=== PATIENT | male | born 1940 | race Caucasian/White ===

== ENCOUNTER 2017-08-18 17:11 | Observation (INO) ==
[2017-08-18 17:45] LABS: Basophils % 0.8 %; Hematocrit 43.7 % (37.5-50.1); Hemoglobin 14.6 g/dL (12.9-16.9); Immature Granulocytes % 0.2 % (0-4); Lymphocytes % 25.2 %; Mean Corpuscular HGB Conc 33.4 g/dL (31.6-35.5); Mean Corpuscular Hemoglobin 29.5 pg (28.0-33.3); Mean Corpuscular Volume 88.3 fL (83.0-100.0); Mean Platelet Volume 10.9 fL (9.4-12.4); Monocytes % 9.2 %; Platelet Count 234 K/mcL (140-400); Red Blood Count 4.95 M/mcL (4.19-5.50); Red Cell Distribution Width 12.7 % (11.5-14.5); Segmented Neutrophils % 64.6 %
[2017-08-18 17:46] LABS: Basophils # 0.1 K/mcL (0.0-0.2); Lymphocytes # 2.3 K/mcL (0.6-4.6); Monocytes # 0.9 K/mcL (0.0-1.3)
--- NOTE | 2017-08-18 17:48 | Emergency Department Note ---
Disposition Clinical Impression: Atrial fibrillation with RVR Disposition: Admitted As Inpatient Condition: Good General Adult HPI - General Chief complaint: ED Shortness of Breath/Dyspnea Stated complaint: JEAN-PAUL Time Seen by Provider: 08/18/17 17:17 Source: patient Limitations: no limitations Nursing Notes Reviewed: Yes Vital Signs Reviewed: Yes - History of Present Illness Pain Scale: 4 - Related Data Home Medications Medication Instructions Recorded Confirmed Atorvastatin [Lipitor] 40 mg PO HS 08/18/17 08/18/17 Celecoxib [Celebrex] 200 mg PO DAILY 08/18/17 08/18/17 Diltiazem CD (24hr) [Cardizem CD] 120 mg PO DAILY 08/18/17 08/18/17 Metformin HCl [Glucophage] 1,000 mg PO BID 08/18/17 08/18/17 Tamsulosin [Flomax] 0.4 mg PO DAILY 08/18/17 Allergies Allergy/AdvReac Type Severity Reaction Status Date / Time No Known Allergies Allergy Verified 07/24/17 18:09 Past Medical History - Past Medical History Medical history: Reports: arthritis, atrial fibrillation, diabetes, hyperlipidemia Psychiatric history: Reports: no psych history - Social History Smoking Status: Current every day smoker Smokeless Tobacco Status: No Alcohol use: Reports: heavy, recent Drug use: Reports: none Physical Exam - General Limitations: no limitations General appearance: alert, in no apparent distress Course Vital Signs Temperature 97.4 F L 08/18/17 17:16 Pulse Rate 148 08/18/17 17:16 Respiratory Rate 16 08/18/17 17:16 Blood Pressure 155/91 08/18/17 17:16 O2 Sat by Pulse Oximetry 98 08/18/17 17:16 Temperature 97.4 F L 08/18/17 17:16 Pulse Rate 87 08/18/17 19:20 Respiratory Rate 16 08/18/17 19:20 Blood Pressure 118/77 08/18/17 19:20 O2 Sat by Pulse Oximetry 95 08/18/17 19:20 Oxygen Delivery Oxygen Delivery Room Air Medical Decision Making - MDM Narrative Medical decision making narrative: This documentation is done with the assistance of Dragon dictation. There may be inaccuracies in supervisor tree trimming or spelling and typographical errors. I examined this patient and my medical decision-making was reviewed with the Resident Physician. I agree with the documented findings, disposition and treatment plan as described except to the extent set forth below. Patient seen and evaluated by Dr. Blas and myself, and agree with his evaluation and management plan, suprascapular the patient that stay. Patient presents today with palpitations and dyspnea. He has A. fib with RVR here with rates of 140s 150s. Restroom on Cardizem check lab work and then reassessed. He is in agreement with this plan. He has been drinking alcohol today also. Chest X-Ray 08/18/17 17:21 IMPRESSION: No acute cardiopulmonary findings. D/ / Josephine Candelaria MD / Josephine Candelaria MD Interpreting Provider: Josephine Candelaria MD 1825 hrs.: Patient's chest x-ray looks good. He is on a Cardizem drip and doing better. Labs are back. Recommended admitting to the hospital, impression is A. fib with RVR. Patient submitted time in stable condition. Patient's critical care time excluding any separately billable procedures is 30 minutes. - Lab Data Result diagrams: 08/18/17 17:30 08/18/17 17:30 Lab Results 08/18/17 08/18/17 08/18/17 Range/Units 17:30 17:30 17:30 WBC 9.3 (4.3-11.1) K/mcL RBC 4.95 (4.19-5.50) M/mcL Hgb 14.6 (12.9-16.9) g/dL Hct 43.7 (37.5-50.1) % MCV 88.3 (83.0-100.0) fL MCH 29.5 (28.0-33.3) pg MCHC 33.4 (31.6-35.5) g/dL RDW 12.7 (11.5-14.5) % Plt Count 234 (140-400) K/mcL MPV 10.9 (9.4-12.4) fL Immature Gran % 0.2 (0-4) % Seg Neutrophils % 64.6 % Lymphocytes % 25.2 % Monocytes % 9.2 % Eosinophils % 0.0 % Basophils % 0.8 % Neutrophils # 6.0 (1.6-8.9) K/mcL Lymphocytes # 2.3 (0.6-4.6) K/mcL Monocytes # 0.9 (0.0-1.3) K/mcL Eosinophils # 0.0 (0.0-0.6) K/mcL Basophils # 0.1 (0.0-0.2) K/mcL PT 12.3 H (9.4-12.1) Seconds INR 1.1 APTT 30.0 (26.0-36.0) Seconds Sodium 134 L (136-145) mEq/L Potassium 3.6 (3.5-5.1) mEq/L Chloride 103 (98-107) mEq/L Carbon Dioxide 22 L (23-29) mEq/L BUN 14 (8-23) mg/dL Creatinine 1.21 (0.70-1.30) mg/dL Est GFR ( Amer) > 60 (> 60) Est GFR (Non-Af Amer) 58 L (> 60) BUN/Creatinine Ratio 12 (6-26) Glucose 115 H (70-105) mg/dL Calculated Osmolality 279 L (280-300) Calcium 10.0 (8.6-10.3) mg/dL Troponin I (< 0.04) ng/mL TSH 2.067 (0.340-5.600) mcIU/mL Ethyl Alcohol 26 H (0-10) mg/dL 08/18/17 Range/Units 17:30 WBC (4.3-11.1) K/mcL RBC (4.19-5.50) M/mcL Hgb (12.9-16.9) g/dL Hct (37.5-50.1) % MCV (83.0-100.0) fL MCH (28.0-33.3) pg MCHC (31.6-35.5) g/dL RDW (11.5-14.5) % Plt Count (140-400) K/mcL MPV (9.4-12.4) fL Immature Gran % (0-4) % Seg Neutrophils % % Lymphocytes % % Monocytes % % Eosinophils % % Basophils % % Neutrophils # (1.6-8.9) K/mcL Lymphocytes # (0.6-4.6) K/mcL Monocytes # (0.0-1.3) K/mcL Eosinophils # (0.0-0.6) K/mcL Basophils # (0.0-0.2) K/mcL PT (9.4-12.1) Seconds INR APTT (26.0-36.0) Seconds Sodium (136-145) mEq/L Potassium (3.5-5.1) mEq/L Chloride (98-107) mEq/L Carbon Dioxide (23-29) mEq/L BUN (8-23) mg/dL Creatinine (0.70-1.30) mg/dL Est GFR ( Amer) (> 60) Est GFR (Non-Af Amer) (> 60) BUN/Creatinine Ratio (6-26) Glucose (70-105) mg/dL Calculated Osmolality (280-300) Calcium (8.6-10.3) mg/dL Troponin I < 0.03 (< 0.04) ng/mL TSH (0.340-5.600) mcIU/mL Ethyl Alcohol (0-10) mg/dL
[2017-08-18 17:49] LABS: INR 1.1; Prothrombin Time 12.3 Seconds (9.4-12.1)
--- NOTE | 2017-08-18 17:51 | Emergency Department Note ---
Disposition Clinical Impression: Atrial fibrillation with RVR Disposition: Admitted As Inpatient Condition: Good Referrals: Josephine Allison CNP [Primary Care Provider] - Forms: ED Satisfaction Letter General Adult HPI - General Chief complaint: ED Shortness of Breath/Dyspnea Stated complaint: JEAN-PAUL Time Seen by Provider: 08/18/17 17:17 Source: patient Mode of arrival: private vehicle Limitations: no limitations Nursing Notes Reviewed: Yes Vital Signs Reviewed: Yes - History of Present Illness HPI Narrative: 77-year-old male history of prior arrhythmia reportedly on Xarelto but stopped due to GI bleed, diabetes who presents to the ER due to lightheadedness and shortness of breath. Patient states he started having symptoms earlier today. States he has felt palpitations in the past and has been seen here for similar symptoms. 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 Denies any chest pain. Has felt lightheaded but no syncopal episodes. No nausea vomiting or diarrhea. Denies any alcohol or drug use except for 2 beers earlier today. No other complaints. Pt Subjective Complaint: Shortness of breath, lightheaded Onset (ago): hour(s) Pain Scale: 4 Consistency: constant Improves with: nothing Worsens with: nothing Associated symptoms: Reports: shortness of breath. Denies: chest pain, nausea/ vomiting Treatments Prior to Arrival: none - Related Data Allergies Allergy/AdvReac Type Severity Reaction Status Date / Time No Known Allergies Allergy Verified 07/24/17 18:09 All systems ED: reviewed and negative except as stated. Constitutional: Denies: fever Cardiovascular: Reports: palpitations. Denies: chest pain Respiratory: Reports: dyspnea. Denies: cough Gastrointestinal: Denies: abdominal pain, nausea, vomiting, diarrhea Past Medical History - Past Medical History Attestation: Yes The following information was validated with the patient. Source: patient Medical history: Reports: arthritis, atrial fibrillation, diabetes, hyperlipidemia Psychiatric history: Reports: no psych history - Social History Smoking Status: Current every day smoker Smokeless Tobacco Status: No Alcohol use: Reports: heavy, recent Drug use: Reports: none Physical Exam - General Limitations: no limitations General appearance: alert, in no apparent distress - Head Head exam: atraumatic, normocephalic - Eye Eye exam: Present: normal appearance - ENT ENT exam: normal exam - Neck Neck exam: Present: normal inspection - Chest Chest inspection: Present: normal inspection, symmetric chest wall rise - Respiratory Respiratory exam: Present: normal lung sounds bilaterally - Cardiovascular Cardiovascular exam: Present: tachycardia, irregular rhythm, normal heart sounds - Abdominal Exam Abdominal exam: Present: soft, Non-Tender. Absent: tenderness - Extremities Exam Extremities exam: Present: normal inspection, full ROM - Expanded Upper Extremity Exam Shoulder exam: Present: normal inspection, full ROM Arm exam: Present: normal inspection, full ROM Elbow exam: Present: normal inspection, full ROM Forearm/Wrist exam: Present: normal inspection, full ROM Hand exam: Present: normal inspection, full ROM - Expanded Lower Extremity Exam Hip/Pelvis exam: Present: normal inspection, full ROM Upper leg exam: Present: normal inspection, full ROM Knee exam: Present: normal inspection, full ROM Lower leg exam: Present: normal inspection, full ROM Ankle exam: Present: normal inspection, full ROM Foot/toe exam: Present: normal inspection, full ROM - Neurological Exam Neurological exam: Present: alert, other (GCS 15. Nonfocal neurologic exam. Moves all extremities equally.) - Skin Skin exam: Present: warm, dry, intact Course Course Narrative: Patient seen and examined. Vital signs reviewed. We will obtain EKG, chest x- ray as well as labs and troponin. Patient is currently tachycardic and hemodynamically stable. We will start Cardizem - Reevaluation(s) Reevaluation #1: Discussed results of imaging and labs with the patient. Agreeable with being admitted. Reevaluation #2: Patient now 90-100 on 10 mg Cardizem drip. Vital Signs Temperature 97.4 F L 08/18/17 17:16 Pulse Rate 148 08/18/17 17:16 Respiratory Rate 16 08/18/17 17:16 Blood Pressure 155/91 08/18/17 17:16 O2 Sat by Pulse Oximetry 98 08/18/17 17:16 Temperature 97.4 F L 08/18/17 17:16 Pulse Rate 115 08/18/17 17:59 Respiratory Rate 16 08/18/17 17:59 Blood Pressure 124/68 08/18/17 17:59 O2 Sat by Pulse Oximetry 97 08/18/17 17:59 Oxygen Delivery Oxygen Delivery Room Air Medical Decision Making - [facility] Narrative Medical decision making narrative: 77-year-old male with history of atrial fibrillation presents to the ER due to lightheadedness. Noted to be in A. fib RVR with a rate up to 150 here. Stable blood pressure. Mentating appropriately. EKG shows A. fib RVR. Patient given Cardizem bolus and drip. He is currently rate controlled. Currently not anticoagulated given history of GI bleed. Patient except to the hospitalist service for A. fib RVR. - Lab Data Lab results reviewed: Yes I reviewed the patient's lab results. Result diagrams: 08/18/17 17:30 08/18/17 17:30 Lab Results 08/18/17 08/18/17 08/18/17 Range/Units 17:30 17:30 17:30 WBC 9.3 (4.3-11.1) K/mcL RBC 4.95 (4.19-5.50) M/mcL Hgb 14.6 (12.9-16.9) g/dL Hct 43.7 (37.5-50.1) % MCV 88.3 (83.0-100.0) fL MCH 29.5 (28.0-33.3) pg MCHC 33.4 (31.6-35.5) g/dL RDW 12.7 (11.5-14.5) % Plt Count 234 (140-400) K/mcL MPV 10.9 (9.4-12.4) fL Immature Gran % 0.2 (0-4) % Seg Neutrophils % 64.6 % Lymphocytes % 25.2 % Monocytes % 9.2 % Eosinophils % 0.0 % Basophils % 0.8 % Neutrophils # 6.0 (1.6-8.9) K/mcL Lymphocytes # 2.3 (0.6-4.6) K/mcL Monocytes # 0.9 (0.0-1.3) K/mcL Eosinophils # 0.0 (0.0-0.6) K/mcL Basophils # 0.1 (0.0-0.2) K/mcL PT 12.3 H (9.4-12.1) Seconds INR 1.1 APTT 30.0 (26.0-36.0) Seconds Sodium 134 L (136-145) mEq/L Potassium 3.6 (3.5-5.1) mEq/L Chloride 103 (98-107) mEq/L Carbon Dioxide 22 L (23-29) mEq/L BUN 14 (8-23) mg/dL Creatinine 1.21 (0.70-1.30) mg/dL Est GFR ( Amer) > 60 (> 60) Est GFR (Non-Af Amer) 58 L (> 60) BUN/Creatinine Ratio 12 (6-26) Glucose 115 H (70-105) mg/dL Calculated Osmolality 279 L (280-300) Calcium 10.0 (8.6-10.3) mg/dL Troponin I (< 0.04) ng/mL TSH 2.067 (0.340-5.600) mcIU/mL Ethyl Alcohol 26 H (0-10) mg/dL 08/18/17 Range/Units 17:30 WBC (4.3-11.1) K/mcL RBC (4.19-5.50) M/mcL Hgb (12.9-16.9) g/dL Hct (37.5-50.1) % MCV (83.0-100.0) fL MCH (28.0-33.3) pg MCHC (31.6-35.5) g/dL RDW (11.5-14.5) % Plt Count (140-400) K/mcL MPV (9.4-12.4) fL Immature Gran % (0-4) % Seg Neutrophils % % Lymphocytes % % Monocytes % % Eosinophils % % Basophils % % Neutrophils # (1.6-8.9) K/mcL Lymphocytes # (0.6-4.6) K/mcL Monocytes # (0.0-1.3) K/mcL Eosinophils # (0.0-0.6) K/mcL Basophils # (0.0-0.2) K/mcL PT (9.4-12.1) Seconds INR APTT (26.0-36.0) Seconds Sodium (136-145) mEq/L Potassium (3.5-5.1) mEq/L Chloride (98-107) mEq/L Carbon Dioxide (23-29) mEq/L BUN (8-23) mg/dL Creatinine (0.70-1.30) mg/dL Est GFR ( Amer) (> 60) Est GFR (Non-Af Amer) (> 60) BUN/Creatinine Ratio (6-26) Glucose (70-105) mg/dL Calculated Osmolality (280-300) Calcium (8.6-10.3) mg/dL Troponin I < 0.03 (< 0.04) ng/mL TSH (0.340-5.600) mcIU/mL Ethyl Alcohol (0-10) mg/dL - Radiology Data Radiology results reviewed: Yes I reviewed the patient's radiology results. Chest X-Ray 08/18/17 17:21 IMPRESSION: No acute cardiopulmonary findings. D/ / Josephine Candelaria MD / Josephine Candelaria MD Interpreting Provider: Josephine Candelaria MD - EKG Data EKG #1 EKG attestation: Yes I reviewed and interpreted this EKG. EKG results narrative: EKG demonstrates atrial fibrillation with rapid ventricular response with a rate of 121. Normal axis. Normal intervals. Normal R-wave progression. No gross ST elevations or depressions. No acute ischemic findings. No significant changes from previous EKG dated 07/24/17. S.B.Anahi - Quinten Situation: Demographics, MOA Background: Presenting Complaint, Relevant PMH, Meds, & Allergies Assessment: Course and respsone to treatment, Patient/Family Expectation, Pertinant Lab Results Recommendation: Barrier(s) to disposition, Recommendation based on pending studies, treatments, or consults SShellie Report Given to: Dr. Judith Mensah Time: 19:04
[2017-08-18 17:57] LABS: BUN/Creatinine Ratio 12 (6-26); Blood Urea Nitrogen 14 mg/dL (8-23); Carbon Dioxide 22 mEq/L (23-29); Chloride 103 mEq/L (98-107); Glucose 115 mg/dL (70-105); Osmolality,Calculated 279 (280-300); Potassium 3.6 mEq/L (3.5-5.1); Sodium 134 mEq/L (136-145); eGFR For African Americans > 60 (> 60); eGFR For Non-African Americans 58 (> 60)
[2017-08-18 18:05] LABS: Ethanol 26 mg/dL (0-10)
[2017-08-18 18:15] LABS: Thyroid Stimulating Hormone 2.067 mcIU/mL (0.340-5.600)
[2017-08-18] MEDS ORDERED: Ondansetron 4 MG/2 ML VIAL IVP PRN (20:44)
[2017-08-18] MEDS ORDERED: Naloxone 0.4 MG/ML INJ IVP PRN (20:44)
[2017-08-18] MEDS ORDERED: Dextrose Gel 15 GM/37.5 ML TUBE PO PRN ×2 (20:46)
[2017-08-18] MEDS ORDERED: D5% in Water 1,000 ML IVC PRN (20:46)
[2017-08-18] MEDS ORDERED: *HR* Dextrose 50 % in Water (Syg) 50 ML SYRINGE IVP PRN (20:46)
[2017-08-18] MEDS ORDERED: Insulin LISPRO 300 UNITS/3 ML VIAL SQ SCH (21:00)
[2017-08-18] MEDS ORDERED: Diltiazem CD (24hr) 240 MG CAPSULE PO SCH (22:00)
--- NOTE | 2017-08-18 22:05 | Internal Med History&Physical ---
Date of Encounter: 08/18/17 Time of Encounter: 21:45 Assessment and Plan (1) Atrial fibrillation with RVR Current visit: Yes Status: Acute History of Afib Noted to be in Afib with RVR and symptomatic resolution of presenting symptoms once the rate was controlled titrate off cardizem gtt to maintain HR<100 Pt reported to be on cardizem 120mg PO qd at home, will increase the dose to cardizem 240mg PO qd Reports of taking Aspirin daily, will continue continue tele monitoring f/u 2D echo consider cardiology evaluation if rate not controlled with adjusted in cardizem dosing Pt does not have a telephone clerk as his primary telephone clerk moved, will need a telephone clerk referral upon discharge (2) Diabetes mellitus Current visit: Yes Status: Chronic Hold oral antihyperglycemic agents at this time continue sliding scale insulin algorithm monitor FS and BG ADA diet Qualifiers: Diabetes mellitus type: type 2 Diabetes mellitus complication status: with unspecified complications Diabetes mellitus intermediate accountant insulin use: without intermediate accountant use Qualified Code(s): E11.8 - Type 2 diabetes mellitus with unspecified complications (3) Hyperlipidemia Current visit: Yes Status: Chronic continue home dose of Lipitor Qualifiers: Hyperlipidemia type: unspecified Qualified Code(s): E78.5 - Hyperlipidemia , unspecified (4) DVT prophylaxis Current visit: Yes Status: Acute Heparin SQ Internal Medicine - H&P: HPI Chief complaint: palpitations, lightheadedness Admitted From: Home Plans for Post Hospital Care: Home History of present illness: Mr. Silva is a 77 year old male with PMH of Afib, DM, HLD who presented to the ER for evaluation of palpitations and lightheadness x 1 day. Pt states he had chest discomfort with palpitations since yesterday and kept feeling that he was going to faint, which is what prompted his visit to the ER. Upon arrival, he was noted to be in Afib with RVR with HR in 150s. He was started on cardizem gtt with improvement of his rate and resolution of his presenting symptoms. Reports of taking Caridzem LA 120mg once a day and not on anticoagulation due to history of GI bleed from Xarelto. Currently resting in bed and denies any sob , chest pain, abd pain, n/v, fever, or chills. Past Med Surg Social Fam HX - Past Medical History Medical history: arthritis, atrial fibrillation, diabetes, hyperlipidemia Psychiatric history: no psych history - Social History Smoking Status: Current every day smoker Smokeless Tobacco Status: No Alcohol use: heavy, recent Drug use: none Internal Medicine - H&P: Meds Atorvastatin [Lipitor] 40 mg PO HS 08/18/17 [History] Celecoxib [Celebrex] 200 mg PO DAILY 08/18/17 [History] Diltiazem CD (24hr) [Cardizem CD] 120 mg PO DAILY 08/18/17 [History] Metformin HCl [Glucophage] 1,000 mg PO BID 08/18/17 [History] Tamsulosin [Flomax] 0.4 mg PO DAILY 08/18/17 [History] 3 Allergy/AdvReac Type Severity Reaction Status Date / Time No Known Allergies Allergy Verified 07/24/17 18:09 All Systems PM: A 10-system review of systems was performed and is negative for pertinent findings except as documented above in the HPI. - EENT Eyes: as per HPI - Constitutional Vitals: Temp Pulse Resp BP Pulse Ox 97.8 F 82 16 129/75 97 08/18/17 20:42 08/18/17 20:42 08/18/17 20:42 08/18/17 20:42 08/18/17 20:42 General appearance: Present: cooperative, A&O X 3, pleasant, no acute distress, answers questions appropriately - Head Head exam: Present: atraumatic, normocephalic - Eye Eye exam: Present: conjuntiva pink, sclera anicteric - Respiratory Respiratory exam: Present: CTAB. Absent: respiratory distress, wheezes - Cardiovascular Cardiovascular exam: Present: irregular rhythm, +S1, +S2. Absent: diastolic murmur, systolic murmur - GI/Abdominal GI/Abdominal exam: Present: normal bowel sounds, soft, no peritoneal signs. Absent: distended, tenderness - Extremities Exam Extremities exam: Present: warm, radial pulses palpable and symmetrical. Absent : calf tenderness, cyanotic, pedal edema - Neurological Exam Neurological exam: Present: alert, oriented X3 - Psychiatric Psychiatric exam: Present: normal affect, normal mood Internal Med - H&P Results - Labs CBC & Chem 7: 08/18/17 17:30 08/18/17 17:30
[2017-08-19 05:23] LABS: Basophils # 0.1 K/mcL (0.0-0.2); Basophils % 0.7 %; Hematocrit 39.2 % (37.5-50.1); Immature Granulocytes % 0.4 % (0-4); Lymphocytes # 1.5 K/mcL (0.6-4.6); Lymphocytes % 22.4 %; Mean Corpuscular HGB Conc 32.9 g/dL (31.6-35.5); Mean Corpuscular Hemoglobin 29.3 pg (28.0-33.3); Mean Corpuscular Volume 88.9 fL (83.0-100.0); Mean Platelet Volume 11.5 fL (9.4-12.4); Monocytes # 0.9 K/mcL (0.0-1.3); Monocytes % 13.1 %; Neutrophils # 4.4 K/mcL (1.6-8.9); Platelet Count 216 K/mcL (140-400); Red Blood Count 4.41 M/mcL (4.19-5.50); Red Cell Distribution Width 12.6 % (11.5-14.5); Segmented Neutrophils % 63.4 %
[2017-08-19 05:27] LABS: Hemoglobin 12.9 g/dL (12.9-16.9)
[2017-08-19 05:30] LABS: BUN/Creatinine Ratio 17 (6-26); Blood Urea Nitrogen 18 mg/dL (8-23); Calcium 9.5 mg/dL (8.6-10.3); Carbon Dioxide 24 mEq/L (23-29); Chloride 108 mEq/L (98-107); Glucose 125 mg/dL (70-105); Magnesium 1.8 mg/dL (1.6-2.6); Osmolality,Calculated 297 (280-300); Phosphorous 2.9 mg/dL (2.7-4.5); Potassium 5.2 mEq/L (3.5-5.1); Sodium 142 mEq/L (136-145); eGFR For African Americans > 60 (> 60); eGFR For Non-African Americans > 60 (> 60)
[2017-08-19] MEDS ORDERED: *HR* Heparin 5,000 UNIT/ML VIAL SQ SCH (06:00)
[2017-08-19] MEDS ORDERED: Insulin LISPRO 300 UNITS/3 ML VIAL SQ SCH (07:30)
[2017-08-19 08:19] VITALS: BP 131/68
[2017-08-19] MEDS ORDERED: Aspirin 81 MG TAB.CHEW PO SCH (09:00)
[2017-08-19] MEDS ORDERED: Celecoxib 200 MG CAPSULE PO SCH (09:00)
--- NOTE | 2017-08-19 10:06 | Discharge Summary ---
<Bryan Nino - Last Filed: 08/19/17 14:42> Date of Encounter: 08/19/17 Time of Encounter: 10:04 - Discharge Diagnosis (1) Atrial fibrillation with RVR Priority: Primary Status: Acute (2) Diabetes mellitus Priority: Secondary Status: Chronic Qualifiers: Diabetes mellitus type: type 2 Diabetes mellitus complication status: with unspecified complications Diabetes mellitus prison insulin use: without supervisor long goods use Qualified Code(s): E11.8 - Type 2 diabetes mellitus with unspecified complications (3) Hyperlipidemia Priority: Secondary Status: Chronic Qualifiers: Hyperlipidemia type: unspecified Qualified Code(s): E78.5 - Hyperlipidemia , unspecified (4) DVT prophylaxis Priority: Secondary Status: Acute - Discharge Medications Prescriptions: Diltiazem CD (24hr) [Cardizem CD] 240 mg PO HS #30 cap Home Medications: Atorvastatin [Lipitor] 40 mg PO HS 08/18/17 [History] Celecoxib [Celebrex] 200 mg PO DAILY 08/18/17 [History] Metformin HCl [Glucophage] 1,000 mg PO BID 08/18/17 [History] Tamsulosin [Flomax] 0.4 mg PO DAILY 08/18/17 [History] Aspirin 81 mg PO DAILY 08/19/17 [History] Diltiazem CD (24hr) [Cardizem CD] 240 mg PO HS #30 cap 08/19/17 [Rx] Allergies/Adverse Reactions: 3 Allergy/AdvReac Type Severity Reaction Status Date / Time No Known Allergies Allergy Verified 07/24/17 18:09 Procedures/tests Complete & Pending: Procedures Performed prior 72 hours Category Date Time Status EV echocardiogram Stat Y 08/19/17 22:17 Completed Date of admission: 08/18/17 19:59 Primary care physician: Josephine Allison CNP Discharging clinician: Bryan Nino Anticipated date of discharge: 08/19/17 - Patient Status Disposition: Home, Self-Care Condition: Good Functional capacity at discharge: independent ambulation Overall status at discharge: patient is back to baseline - Discharge Instructions Instructions: Diltiazem (By mouth), Atrial Fibrillation (DC) Follow Up With: Josephine Allison CNP [Primary Care Provider] - Additional Instructions: Please follow up with your primary care provider within a week of discharge and take your medication as prescribed. Please note the increase in your cardizem dose. - Diet and Activity Activity: increase activity as tolerated, resume usual activities as tolerated Diet: advance to your usual diet Hospital course: Mr. Silva is a 77 year old male with past medical history of paroxysmal atrial fibrillation in the emergency department with a chief complaint of weakness, palpitations 1 day. He stated that his expenses in the past and can tell he goes into atrial fibrillation. In the emergency department heart rate was noted to pain in the 150s. He was started on Cardizem drip with improvement of great resolution of his symptoms. He is not on anticoagulation due to history of GI bleed on Xarelto. Labs were significant for an elevated alcohol of 26. His medical Hospital for further evaluation and management of atrial fibrillation with rapid ventricular response. During course of hospital stay, patient gradually improved. His symptoms did not return and his heart rate was well-controlled on Cardizem drip. He was transitioned to oral Cardizem and increased dose of 240 mg by mouth daily at bedtime. On day of discharge, patient had no complaints and vital signs were stable. Lab results unremarkable. Echocardiogram was performed showing ejection fraction of 60% with mild left ventricular diastolic dysfunction. No other abnormalities. He will be discharged home in stable condition and instructed to follow up with his primary care physician within 7-10 days. He was instructed to follow up in the emergency department if his symptoms should return. All questions were answered. - Time Spent with Patient Total time spent providing and/or coordinating discharge services: - Constitutional Vitals: Temp Pulse Resp BP Pulse Ox 97.8 F 78 18 131/68 93 08/19/17 08:12 08/19/17 08:12 08/19/17 08:12 08/19/17 08:12 08/19/17 08:12 General appearance: Present: cooperative, A&O X 3, pleasant, no acute distress, answers questions appropriately Exam: Gen.: Vitals noted. No acute distress. AAOx3 HEENT: PERRL/EOMI, oropharynx clear, Normocephalic, atraumatic Cardiac: RRR, no murmur, +S1/S2 Pulmonary: CTA bilaterally, no wheezes, rales or rhonchi, equal chest expansion Abdomen: soft, nontender, BS noted, no guarding MSK: ROM intact, no joint swelling noted Extremities: no BLE edema, nontender calf, no cyanosis or clubbing Neuro: A&Ox3, moves all extremities, no focal deficits Psych: Appropriate mood and behavior <Sami Cox Junior - Last Filed: 08/19/17 19:17> Date of Encounter: 08/19/17 - Discharge Diagnosis (1) Atrial fibrillation Priority: Primary Status: Acute Qualifiers: Atrial fibrillation type: paroxysmal Qualified Code(s): I48.0 - Paroxysmal atrial fibrillation (2) Diabetes mellitus Status: Chronic Qualifiers: Diabetes mellitus type: type 2 Diabetes mellitus complication status: with unspecified complications Diabetes mellitus prison insulin use: without prison use Qualified Code(s): E11.8 - Type 2 diabetes mellitus with unspecified complications (3) Hyperlipidemia Status: Chronic Qualifiers: Hyperlipidemia type: mixed hyperlipidemia Qualified Code(s): E78.2 - Mixed hyperlipidemia (4) Tobacco abuse Priority: Secondary Status: Chronic (5) Alcohol abuse Priority: Secondary Status: Chronic Procedures/tests Complete & Pending: Procedures Performed prior 72 hours Category Date Time Status EV echocardiogram Stat Y 08/19/17 22:17 Completed Date of admission: 08/18/17 19:59 Primary care physician: Josephine Allison [facility] Hospital course: Mr. Silva is a 77 year old male - Time Spent with Patient Total time spent providing and/or coordinating discharge services: - Constitutional Vitals: Temp Pulse Resp BP Pulse Ox 97.8 F 78 18 131/68 93 08/19/17 08:12 08/19/17 08:12 08/19/17 08:12 08/19/17 08:12 08/19/17 08:12 - Attending Attestation I examined this patient and my medical decision-making was reviewed with the Resident Physician on 08/19/17. I agree with the documented findings, disposition and treatment plan as described except to the extent set forth below. Mr Silva has been in observation for parox a fib with rapid rate. He is now in NSR and feels at baseline. He is afebrile with stable vitals and ready for discharge home. Exam alert. comfortable Mucus membranes dry Heart reg No wheeze Abd soft I/P 1. Parox a fib D/C today
--- NOTE | 2017-08-19 11:13 | Electrocardiograph Report ---
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
== END 2017-08-19 13:02 | disposition home or self-care (01) ==
LOC: EMEROO 17:11 → 2NENU 17:11 → SUATTDRO 19:59 → 2NENU 20:31
PROVIDERS: ADMIT Internal Medicine; ATTEND Internal Medicine

== ENCOUNTER 2020-04-14 11:32 | Observation (INO) ==
[2020-04-14] MEDS ORDERED: Isovue-370 500 ML BOTTLE IVP ONE (12:09)
[2020-04-14 12:37] LABS: Basophils # 0.1 K/mcL (0.0-0.2); Basophils % 0.9 %; Eosinophils # 0.1 K/mcL (0.0-0.6); Hematocrit 39.2 % (37.5-50.1); Hemoglobin 12.7 g/dL (12.9-16.9); Immature Granulocytes % 0.3 % (0-4); Lymphocytes # 1.3 K/mcL (0.6-4.6); Lymphocytes % 22.4 %; Mean Corpuscular HGB Conc 32.4 g/dL (31.6-35.5); Mean Corpuscular Hemoglobin 29.7 pg (28.0-33.3); Mean Corpuscular Volume 91.8 fL (83.0-100.0); Mean Platelet Volume 11.2 fL (9.4-12.4); Monocytes # 0.7 K/mcL (0.0-1.3); Monocytes % 12.6 %; Neutrophils # 3.6 K/mcL (1.6-8.9); Platelet Count 173 K/mcL (140-400); Red Blood Count 4.27 M/mcL (4.19-5.50); Red Cell Distribution Width 12.9 % (11.5-14.5); Segmented Neutrophils % 62.8 %; White Blood Count 5.7 K/mcL (4.3-11.1)
[2020-04-14 12:41] LABS: INR 1.1; Prothrombin Time 12.3 Seconds (9.4-12.1)
[2020-04-14 12:43] LABS: Bilirubin,Urine Negative (Negative); Blood,Urine Negative (Negative); Clarity,Urine Clear (Clear); Color,Urine Yellow (Yellow); Glucose,Urine (UA) 100 mg/dL (Normal); Ketones,Urine Negative (Negative); Leukocyte Esterase,Urine Negative (Negative); Nitrite,Urine Negative (Negative); Protein,Urine Negative (Neg-Trace); Specific Gravity,Urine 1.015 (1.010-1.025); Urobilinogen,Urine Normal (Normal)
[2020-04-14 12:55] LABS: RBC,Urine 0-3 per hpf (0-3); WBC,Urine 0-3 per hpf (0-3)
[2020-04-14 12:55] LABS: Alanine Aminotransferase 9 Units/L (7-52); Albumin 4.1 g/dL (3.5-5.7); Albumin/Globulin Ratio 1.9 (1.1-2.2); Alkaline Phosphatase 61 Units/L (34-104); Aspartate Amino Transferase 13 Units/L (13-39); BUN/Creatinine Ratio 20 (6-26); Bilirubin,Total 0.5 mg/dL (0.3-1.0); Blood Urea Nitrogen 21 mg/dL (8-23); Calcium 9.9 mg/dL (8.6-10.3); Carbon Dioxide 23 mEq/L (23-29); Chloride 109 mEq/L (98-107); Globulin 2.2 g/dL (2.4-3.5); Glucose 177 mg/dL (70-105); Osmolality,Calculated 293 (280-300); Potassium 3.9 mEq/L (3.5-5.1); Sodium 138 mEq/L (136-145); Total Protein 6.3 g/dL (6.4-8.9); Troponin I < 0.03 ng/mL (< 0.04); eGFR For African Americans > 60 (> 60); eGFR For Non-African Americans > 60 (> 60)
[2020-04-14] MEDS ORDERED: Naloxone 0.4 MG/ML INJ IVP PRN (14:50)
[2020-04-14] MEDS ORDERED: Ondansetron 4 MG/2 ML VIAL IVP PRN (14:50)
[2020-04-14] MEDS ORDERED: Perflutren Lipid Microsphere 1.3 ML in 0.9 % Sodium Chloride 8.7 ML IVP PRN (15:34)
[2020-04-14] MEDS ORDERED: D5% in Water 1,000 ML IVC PRN (15:35)
[2020-04-14] MEDS ORDERED: Dextrose Gel 15 GM/37.5 ML TUBE PO PRN ×2 (15:35)
[2020-04-14] MEDS ORDERED: *HR* Dextrose 50 % in Water (Vial) 50 ML VIAL IVP PRN (15:35)
[2020-04-14 16:29] LABS: Thyroid Stimulating Hormone 1.161 mcIU/mL (0.340-5.600)
[2020-04-14] MEDS: Insulin LISPRO 300 UNITS/3 ML VIAL SQ SCH (17:00)
[2020-04-14 18:48] LABS: Troponin I < 0.03 ng/mL (< 0.04)
[2020-04-14] MEDS ORDERED: *HR* LORazepam 2 MG/ML VIAL IVP PRN ×3 (19:59)
[2020-04-14 20:47] LABS: Amylase 77 Units/L (29-103); Ethanol < 10 mg/dL (Less than 10); Lipase 44 Units/L (11-82)
[2020-04-15 02:06] LABS: Basophils # 0.1 K/mcL (0.0-0.2); Basophils % 0.9 %; Eosinophils # 0.2 K/mcL (0.0-0.6); Hematocrit 37.6 % (37.5-50.1); Hemoglobin 12.1 g/dL (12.9-16.9); Immature Granulocytes % 0.2 % (0-4); Lymphocytes # 1.6 K/mcL (0.6-4.6); Lymphocytes % 24.8 %; Mean Corpuscular HGB Conc 32.2 g/dL (31.6-35.5); Mean Corpuscular Hemoglobin 29.6 pg (28.0-33.3); Mean Corpuscular Volume 91.9 fL (83.0-100.0); Monocytes # 0.7 K/mcL (0.0-1.3); Monocytes % 11.3 %; Neutrophils # 3.8 K/mcL (1.6-8.9); Platelet Count 185 K/mcL (140-400); Red Blood Count 4.09 M/mcL (4.19-5.50); Red Cell Distribution Width 12.7 % (11.5-14.5); Segmented Neutrophils % 59.8 %; White Blood Count 6.4 K/mcL (4.3-11.1)
[2020-04-15 02:25] LABS: BUN/Creatinine Ratio 18 (6-26); Blood Urea Nitrogen 21 mg/dL (8-23); Calcium 9.6 mg/dL (8.6-10.3); Carbon Dioxide 26 mEq/L (23-29); Chloride 108 mEq/L (98-107); Glucose 123 mg/dL (70-105); Magnesium 1.6 mg/dL (1.6-2.6); Osmolality,Calculated 292 (280-300); Potassium 4.1 mEq/L (3.5-5.1); Sodium 139 mEq/L (136-145); eGFR For African Americans > 60 (> 60); eGFR For Non-African Americans > 60 (> 60)
[2020-04-15] MEDS ORDERED: Aspirin 81 MG TAB.CHEW PO SCH (09:00)
[2020-04-15 09:10] VITALS: BP 160/78
[2020-04-15] MEDS: Insulin LISPRO 300 UNITS/3 ML VIAL SQ SCH (09:31)
[2020-04-15] MEDS ORDERED: DilTIAZem CD (24hr) 120 MG CAP.ER.24H PO SCH (10:30)
== END 2020-04-15 11:07 | disposition home or self-care (01) ==
LOC: 3BNU 11:32 → EMEROOARM 11:32 → SUATTDRO 15:07 → 3BNU 17:17
PROVIDERS: ADMIT Student in an Organized Health Care Education/Training Program; ATTEND Internal Medicine